=== PATIENT | male | born 1955 | race Caucasian/White ===

== ENCOUNTER 2021-08-02 18:45 | Emergency (ER) | payer SELFPAY ==
--- OUTSIDE RECORDS SUMMARY | 2021-08-02 18:48 | XMS REPORT | Continuity of Care Document ---
:1955 Author Organization [facility] t Address [address] [place] [address] Care Team Providers Name Role Phone Bakari Browning Attending Clinician Unavailable Bakari Browning Admitting Clinician Unavailable Payers Payer Name Policy Type Policy Number Effective Date Expiration Date S ource Problems This patient has no known problems. Allergies, Adverse Reactions, Alerts Allergy Allergy Status Severity Reaction(s) Onset Inactive Treating Comm ents Source Name Type Date Date Clinician No Known DA Active U [facility] Allergie 11-16 Clear s 00:00: Bruce 00 [facility] Medications This patient has no known medications. Immunizations Ordered Immunization Filled Immunization Date Status Commen ts Source Name Name Javier COVID-19 Javier COVID-19 2021-04-16 Completed Vaccine Vaccine 00:00:00 Pfizer COVID-19 Vaccine Pfizer COVID-19 2021-03-19 Completed Vaccine 00:00:00 Javier COVID-19 Javier COVID-19 2020-12-30 Completed Vaccine Vaccine 00:00:00 Pfizer COVID-19 Vaccine Pfizer COVID-19 2020-07-20 Completed Vaccine 00:00:00 Pfizer COVID-19 Vaccine Pfizer COVID-19 2020-06-29 Completed Vaccine 00:00:00 Procedures This patient has no known procedures. Encounters Start End Encounter Admission Attending Care Care Encounter Source Date/Time Date/Time Type Type Clinicians Facility Department ID 2021-04-16 2021-04-16 Outpatient [facility] [id number] [facility] 00:00:00 00:00:00 V 2021-03-19 2021-03-19 Outpatient [facility] [id number] [facility] 00:00:00 00:00:00 V 2020-12-30 2020-12-30 Outpatient [facility] [id number] [facility] 00:00:00 00:00:00 V 2020-07-20 2020-07-20 Outpatient [facility] [id number] [facility] 00:00:00 00:00:00 V 2020-06-29 2020-06-29 Outpatient [facility] [id number] [facility] 00:00:00 00:00:00 V 2019-09-18 2019-09-18 Outpatient [facility] [id number] [facility] 10:00:00 10:00:00 [facility] 2019-09-12 2019-09-12 Outpatient SUMAN [facility] [id number] [facility] 10:41:00 10:41:00 [facility] 2019-09-01 2019-09-01 Outpatient Clifford [facility] [id number] [facility] 09:00:00 09:00:00 [facility] [id number] [facility] Results Test Description Test Time Test Comments Results Result [facility] e Comments - US ABDOMEN 2019-09-12 Name: COMPLETE 12:23:00 INGA DELA CRUZ [facility] : 1955 Age/S: 63 / M [address] [place] [address] Unit #: [id number] Loc: [place] [address] Phys: Ahsan Browning MD Acct: [id number] Dis Date: Status: REG CLI PHONE #: [phone] Exam Date: 09/12/2019 1142 FAX #: [phone] Reason: B18.2,CHRONIC HEPATITIS C WITHOUT HEPATIC COMA EXAMS: CPT CODE: [id number] US ABDOMEN COMPLETE [id number] PROCEDURE: ABDOMINAL ULTRASOUND INDICATION: 63-year-old male with chronic hepatitis C COMPARISON: MR abdomen 02/25/2018 TECHNIQUE: Sonographic evaluation of the abdomen was performed with supplemental color and pulsed Doppler. FINDINGS: LIVER: The liver is normal in size measuring 15.9 cm, contour and morphology with increased heterogeneous parenchymal echogenicity. Hepatopedal flow in the main portal vein. GALLBLADDER: There are no gallstones, sludge, pericholecystic fluid or wall thickening. Negative sonographic Bernabe sign. BILE DUCTS: No biliary dilatation. The common duct measures 4 mm. PANCREAS: The pancreas is obscured by bowel gas. SPLEEN: The spleen is mildly prominent, measuring 13.2 cm in length. Tiny shadowing hyperechoic focus noted in the spleen likely representing a calcified granuloma. KIDNEYS: The right kidney measures 10.7 cm in length. Normal contour and parenchymal echogenicity. There is no hydronephrosis, nephrolithiasis, mass lesion or perinephric collection. The left kidney measures 11.9 cm in length. Normal contour and parenchymal echogenicity. There is no hydronephrosis, nephrolithiasis, mass lesion or perinephric collection. AORTA AND INFERIOR VENA CAVA: Visualized portions appear normal. The aorta is largely obscured by bowel gas. Additional comments: No free intraperitoneal fluid. IMPRESSION: 1. Heterogeneous increased hepatic parenchymal echogenicity suggestive of fibrofatty change. PAGE 1 Signed Report (CONTINUED) Name: INGA DELA CRUZ [facility] : 1955 Age/S: 63 / M [address] [place] [address] Unit #: [id number] Loc: [place] [address] Phys: Ahsan Browning MD Acct: [id number] Dis Date: Status: REG CLI PHONE #: [phone] Exam Date: 09/12/2019 1142 FAX #: [phone] Reason: B18.2,CHRONIC HEPATITIS C WITHOUT HEPATIC COMA EXAMS: CPT CODE: [id number] US ABDOMEN COMPLETE [id number] <Continued> SL: [id number] at 1223 Reported and signed by: Tatiana Almendarez M.D. CC: Ahsan BROWNING Technologist: Simona Fuller Trnscb Date/Time: 09/12/2019 (1223) [id number] Orig Print D/T: S: 09/12/2019 (1226) Probe: PAGE 2 Signed Report SURGICAL SPECIMENS 2017-11-18 09:28:00 --------RUN DATE: 11/18/17 [facility] *LIVE* PAGE 1 RUN TIME: 927 Specimen Inquiry RUN USER: INTERFACE --------PATIENT: INGA DELA CRUZ LOC: [facility] U #: [id number] AGE/SX: 61/M ROOM: RE11/16/17REG DR: Keisha Stanley MD : [birth year] BED: DIS: STATUS: [facility]: -------- SPEC #: [id number] RECD: 11/16/17 STATUS: ANDRY RESoy #: [id number] ALENA: 11/16/[address] [facility] [address]: Keisha Stanley MD ENTERED: 11/17/17 SP TYPE: SURG SPEC OTHR DR: Lyn Mena MD, John A MDORDERED: LEVEL 4 CODES: [id number] - LIVER, NOS COPIES TO: Lyn Mena MD [address] , [address] [place], [place] [id number] Keisha Stanley MD [address] [place], [place] [id number] Ahsan Browning MD [address] [facility] [address] [place], [place] [address] PROCEDURES: GM LEVEL 4 (Incomplete) TISSUES: 1. LIVER, NOS - Liver, right lobe, bx. FINAL DIAGNOSIS Liver, right lobe, bx.: Chronic hepatitis with moderate interface hepatitis (grade 3), moderate steatosis, portal to central bridges with probable nodules suggesting cirrhosis (stage IV) (Deondre's Classification). GROSS AND MICROSCOPIC GROSS EXAMINATION: Received in formalin and labeled right lobe of the liver biopsy are cylindrical segments of brown tissue that measure 1.7 cm in length and 0.1 cm in diameter. Entirely submitted for microscopic examination. MICROSCOPIC EXAMINATION: Sections of the "Liver, right lobe, bx." reveal changes of chronic hepatitis. The portal tracts show increased fibrosis with moderate interface hepatitis (grade 3) and moderate steatosis. Fibrosis is increased with portal to central bridges and with probable CONTINUED ON NEXT PAGE --------RUN DATE: 11/18/17 [facility] *LIVE* PAGE 2 RUN TIME: 927 Specimen Inquiry RUN USER: INTERFACE --------SPEC #: [id number] PATIENT: INGA DELA CRUZ #[id number] (Continued) GROSS AND MICROSCOPIC (Continued) nodules suggesting cirrhosis (stage IV). (Deondre's Classification) the reticulin stain shows the increased fibrosis but does not show collapse fibrosis. The trichrome stain shows the increased fibrosis. The iron stain does not show increased stainable iron. POST-OP DIAGNOSIS Hereditary hemochromatosis, alcoholic fatty liver PRE-OP DIAGNOSIS Hereditary hemochromatosis, alcoholic fatty liver REVIEWED BY: Signed SIGNATURE ON FILE Yoselyn Srinivasan MD 11/18/17 0928 -------- END OF REPORT
[2021-08-02 20:14] LABS: Urine Blood Trace-lysed (Negative); Urine Glucose Negative (Negative); Urine Protein Negative (Negative); Urine pH 5.5 (5.0-7.0)
[2021-08-02 20:19] LABS: Absolute Lymphocytes (CBC) 1.7 K/uL (0.7-4.9); Hematocrit 42.5 % (39.6-49.0); MPV 8.2 fL (7.6-11.3); RBC Red Blood Cell Count 4.62 M/uL (4.33-5.43)
[2021-08-02 20:26] LABS: Protime INR 0.95
[2021-08-02 20:35] LABS: Barbiturates NEGATIVE (NEGATIVE); Benzodiazepines NEGATIVE (NEGATIVE); Cocaine NEGATIVE (NEGATIVE); METHAMPHETAM NEGATIVE (NEGATIVE); Methadone NEGATIVE (NEGATIVE); Opiates NEGATIVE (NEGATIVE); Phencyclidine NEGATIVE (NEGATIVE); THC Cannibis NEGATIVE (NEGATIVE)
[2021-08-02 20:36] LABS: Sodium Level 135 mmol/L (136-145)
[2021-08-02 20:41] LABS: ALT/SGPT 27 U/L (12-78); AST/SGOT 46 U/L (15-37); Albumin 3.9 g/dL (3.4-5.0); BUN Blood Urea Nitrogen 16 mg/dL (7-18); Bicarbonate 23 mmol/L (21-32); Bilirubin Direct 0.5 mg/dL (0-0.2); Glucose Level 98 mg/dL (74-106)
[2021-08-02 20:48] LABS: Alkaline Phosphatase 103 U/L (45-117); Bilirubin Total 1.7 mg/dL (0.2-1.0)
[2021-08-03] MEDS ORDERED: GABAPENTIN 300 MG CAP ONE (07:50)
[2021-08-03] MEDS ORDERED: lisinopriL 20 MG TAB ONE (07:50)
[2021-08-03] MEDS ORDERED: POTASSIUM 25 MEQ EFFERV TAB ONE (07:51)
--- NOTE | 2021-08-03 08:59 | ER ---
Nurse's Notes [facility] Name: Jesse Frank Age: 65 yrs Sex: Male : 1955 Arrival Date: 08/02/2021 Time: 18:48 Bed 17 Private MD: Diagnosis: Depression, ;Alcohol abuse;Alcohol use, unspecified;Alcoholism and drug addiction in family Presentation: 08/02 18:55 Chief complaint: Patient states: "I want to kill myself, I want to shoot myself in the vg1 head, nothing is working; Ivelisse been dealing with depression, nobody wants me, nobody likes me and nobody needs me so I might as well just , just fuck it all" States depression started 20 years ago after divorce. Also states "I havent talked to my son either, I dont know why, I think my ex told him something. So now I dont have my son" Denies HI. Coronavirus screen: Vaccine status: Patient reports receiving the 2nd dose of the covid vaccine. Client denies travel out of the [place] in the last 14 days. Ebola Screen: Patient denies exposure to infectious person. Patient denies travel to an Ebola-affected area in the 21 days before illness onset. Initial Sepsis Screen: Does the patient meet any 2 criteria? No. Patient's initial sepsis screen is negative. Does the patient have a suspected source of infection? No. Patient's initial sepsis screen is negative. Risk Assessment: Do you want to hurt yourself or someone else? Patient reports desire/thoughts of hurting themselves or someone else. Provider notified. Onset of symptoms was August 02, 2021. 18:55 Method Of Arrival: Ambulatory vg1 18:55 Acuity: CANDIS 2 vg1 Triage Assessment: 19:00 General: Appears uncomfortable, Behavior is agitated. Pain: Denies pain. vg1 Historical: - Allergies: 19:00 No Known Allergies; vg1 - Home Meds: 19:00 gabapentin oral [Active]; vg1 - PMHx: 19:00 Neuropathy; Depressive disorder; Hypertensive disorder; vg1 - Immunization history:: Client reports receiving the 2nd dose of the Covid vaccine. - Social history:: Smoking status: Patient denies any tobacco usage or history of. Patient uses alcohol, patient/guardian reports recent binge of alcohol consumption. Screenin:00 Abuse screen: Denies threats or abuse. Nutritional screening: No deficits noted. ag7 Tuberculosis screening: No symptoms or risk factors identified. Fall Risk No fall in past 12 months (0 pts). No secondary diagnosis (0 pts). IV access (20 points). Ambulatory Aid- None/Bed Rest/Nurse Assist (0 pts). Gait- Normal/Bed Rest/Wheelchair (0 pts) Mental Status- Oriented to own ability (0 pts). Total Flanagan Fall Scale indicates No Risk (0-24 pts). Assessment: 19:10 General: Appears in no apparent distress. Behavior is calm, cooperative, appropriate ag7 for age. General: Patient verbalize suicidal ideation with "a plan to take pills and drink alcohol". Pain: Denies pain. Neuro: Level of Consciousness is awake, alert, obeys commands, Oriented to person, place, time, situation, Appropriate for age. Cardiovascular: Heart tones S1 S2 present Capillary refill < 3 seconds in bilateral fingers Clubbing of nail beds is absent Patient's skin is warm and dry. Edema is absent. Respiratory: Airway is patent Trachea midline Respiratory effort is even, unlabored, Respiratory pattern is regular, symmetrical, Breath sounds are coarse bilaterally. GI: Abdomen is round non-distended. : Urine is clear. EENT: No deficits noted. Derm: No deficits noted. Musculoskeletal: No deficits noted. 20:00 Reassessment: No changes from previously documented assessment. Patient and/or family ag7 updated on plan of care and expected duration. Pain level reassessed. Patient is alert, oriented x 3, equal unlabored respirations, skin warm/dry/pink. sitter at the bedside. 21:00 Reassessment: No changes from previously documented assessment. ag7 22:00 Reassessment: Patient and/or family updated on plan of care and expected duration. Pain ag7 level reassessed. Patient is alert, oriented x 3, equal unlabored respirations, skin warm/dry/pink. sitter at the bedside, patient resting in bed with eyes closed. 23:00 Reassessment: No changes from previously documented assessment. Patient and/or family ag7 updated on plan of care and expected duration. Pain level reassessed. Patient is alert, oriented x 3, equal unlabored respirations, skin warm/dry/pink. 04/24 00:00 Reassessment: No changes from previously documented assessment. Patient and/or family ag7 updated on plan of care and expected duration. Pain level reassessed. Patient is alert, oriented x 3, equal unlabored respirations, skin warm/dry/pink. sitter at bedside, patient continue with suicide ideation Patient denies pain at this time. 01:00 Reassessment: No changes from previously documented assessment. ag7 02:00 Reassessment: No changes from previously documented assessment. Patient and/or family ag7 updated on plan of care and expected duration. Pain level reassessed. Patient is alert, oriented x 3, equal unlabored respirations, skin warm/dry/pink. Patient is restless, tossing and turning in bed, patient provided with blanket. Sitter continue to monitor at the bedside Patient denies pain at this time. 03:00 Reassessment: No changes from previously documented assessment. ag7 04:00 Reassessment: Patient and/or family updated on plan of care and expected duration. Pain ag7 level reassessed. Patient is alert, oriented x 3, equal unlabored respirations, skin warm/dry/pink. sitter at the bedside. 04:48 Reassessment: Patient complete intake question via phone with [facility]. ag7 06:00 Reassessment: Patient and/or family updated on plan of care and expected duration. Pain ag7 level reassessed. Patient is alert, oriented x 3, equal unlabored respirations, skin warm/dry/pink. sitter at the bedside, patient continue to verbalize suicidal ideation. Patient denies pain at this time. 07:00 Reassessment: No changes from previously documented assessment. Patient and/or family ll1 updated on plan of care and expected duration. Pain level reassessed. Patient is alert, oriented x 3, equal unlabored respirations, skin warm/dry/pink. 07:15 General: Appears in no apparent distress. Behavior is cooperative, appropriate for age. ll1 General: Feeling better at this time. States he wants to use his cell phone to call family to let them know he is here. Given ice water. Alert and oriented, no distress at this time. Sitter at bedside. Pain: Denies pain. Neuro: No deficits noted. 07:53 General: No longer suicidal. Feels alone, helpless. Self medicates with alcohol, but ll1 tries to go to AA meetings (currently has a sponsor) intermittently for the past 5 months. Denies illegal drug use. . 08:50 Reassessment: No changes from previously documented assessment. Patient and/or family ll1 updated on plan of care and expected duration. Pain level reassessed. Patient is alert, oriented x 3, equal unlabored respirations, skin warm/dry/pink. 09:26 Reassessment: No changes from previously documented assessment. Patient and/or family ll1 updated on plan of care and expected duration. Pain level reassessed. Patient is alert, oriented x 3, equal unlabored respirations, skin warm/dry/pink. Psych: 08/02 19:30 [place] Suicide Severity Screening: In the past month, have you wished you were ag7 or wished you could go to sleep and not wake up? Patient responds "yes." "In the past month, have you actually had any thoughts of killing yourself?" Patient responds "yes." "In your lifetime, have you ever done anything, started to do anything, or prepared to do anything to end your life?" Patient responds "yes.". Subjective: Having thoughts of suicide. Plan for suicide is take pills and drink alcohol. Objective: Patient is cooperative, belligerent, Speech is rambling, Affect is appropriate. Interventions: Removed personal items and placed in bag. Patient placed in hospital gown. Searched person for dangerous items. Urine collected and sent for urine drug test. Belonging list filled out. Patient reassessed during use of restraints. Patient is physically safe. Patient's cardiac status is stable. Patient's respirations are even and unlabored. Patient has good circulation in all extremities as indicated by capillary refill < 3 seconds. Patient's ROM assessed and is intact. Patient nutrition and hydration needs will continue to be monitored and addressed. Patient hygiene and elimination needs met. Patient assessed for signs of distress. Patient remains reasonably comfortable at this time. Assisted patient in de-escalation of behavior by removing stimuli causing behavior where possible. Restraints continue to be necessary for patient and staff safety. Safety Checks: Personal items have been removed. Door is open. No visitors are present at this time. sitter at the bedside. Patient uses. Consultation: Psych loan interviewer notified of patients arrival. Commitment: Patient will be a voluntary commitment. Vital Signs: 18:55 BP 145 / 82; Pulse 96; Resp 18; Temp 99.5(TE); Pulse Ox 98% on R/A; Weight 88.45 kg; vg1 Height 5 ft. 10 in. (177.80 cm); Pain 0/10; 08/03 07:30 BP 166 / 89; Pulse 83; Resp 17; Temp 97.8; Pulse Ox 96% on R/A; Pain 0/10; ll1 08/02 18:55 Body Mass Index 27.98 (88.45 kg, 177.80 cm) vg1 ED Course: 08/02 18:48 Patient arrived in ED. ds1 19:00 Triage completed. vg1 19:00 Arm band placed on. vg1 19:05 Chi Amado MD is Attending Physician. kdr 19:11 So Browning, SALTY is Primary Nurse. ag7 21:06 No provider procedures requiring assistance completed. ag7 21:08 Patient has correct armband on for positive identification. Placed in gown. Bed in low ag7 position. Call light in reach. sitter at the bedside. 08/03 03:08 ETOH Level: Draw at midnight Sent. ag7 03:50 contacted [facility] Crisis Line spoke to Mundo to have a screener evaluate the patient.mw2 04:25 patient on the phone with Jeri from [facility]. mw2 07:00 Inserted saline lock: 20 gauge in right antecubital area, using aseptic technique. ll1 Blood collected. done by custom tailor MANAGER ORANGE. 09:24 IV discontinued, intact, bleeding controlled, No redness/swelling at site. Pressure ll1 dressing applied. Administered Medications: 07:52 Drug: Potassium Effervescent Tablet 50 mEq Route: PO; ll1 09:25 Follow up: Response: No adverse reaction ll1 07:53 Drug: Gabapentin 300 mg Route: PO; ll1 09:25 Follow up: Response: No adverse reaction ll1 07:53 Drug: Lisinopril 20 mg Route: PO; ll1 09:25 Follow up: Response: No adverse reaction ll1 Outcome: 08:59 Discharge ordered by . kdr 09:24 Discharged to home ambulatory. ll1 09:24 Condition: stable 09:24 Discharge instructions given to patient, Instructed on discharge instructions, follow up and referral plans. Demonstrated understanding of instructions, follow-up care. 09:26 Patient left the ED. ll1 Signatures: Chi Amado MD MD kdr Sanford, Demi ds1 Layton Mendes mw2 Megan Arzate RN RN vg1 Yumiko Hanna, RN RN ll1 So Browning, SALTY RN ag7 Corrections: (The following items were deleted from the chart) 06:16 06:16 Condition: stable ag7 ag7 06:17 06:16 Patient did not have IV access during this emergency room visit. ag7 ag7 06:22 06:00 Reassessment: Patient and/or family updated on plan of care and expected ag7 duration. Pain level reassessed. Patient is alert, oriented x 3, equal unlabored respirations, skin warm/dry/pink. sitter at the bedside, patient continue to verbalize suicidal ideation. ag7 07:53 07:15 General: Feeling better at this time. States he wants to use his cell phone to ll1 call family to let them know he is here. Given ice water. Alert and oriented, no distress at this time. Sitter at bedside. ll1
--- NOTE | 2021-08-03 09:00 | EDPHYS ---
Physician Documentation [facility] Name: Jesse Frank Age: 65 yrs Sex: Male : 1955 Arrival Date: 08/02/2021 Time: 18:48 Bed 17 Private MD: ED Physician Chi Amado HPI: 08/02 19:32 This 65 yrs old Male presents to ER via Ambulatory with complaints of Suicidal Ideation.kdr 19:32 The patient presents to the emergency department with depression, Long standing kdr depression, suicide ideation. Onset: The symptoms/episode began/occurred at an unknown time. Past psychiatric history: Prior diagnosis: depression, Psychiatric medications include: none. Associated signs and symptoms: The patient has no apparent associated signs or symptoms. Severity of symptoms: At their worst the symptoms were mild in the emergency department the symptoms are unchanged. The patient has experienced similar episodes in the past, chronically. Patient has been to several psychiatric facilities and interacted with the police recently in search of help for his depression. Today he was at [facility] and also interacted with the police (not in a belligerent or confrontational manner). They had suggested some possible resources locally for him to contact. He last saw a psychiatrist about 2 years ago. He did not have any further medications that he is maintained in that regard since. No other medical concerns at this time. He does not have a specific plan. He does not have a weapon (gun) immediately available to him. Currently lives on a boat at the [facility]. He states he does not have any friends at this time. He has been for over 20 years. He has little contact with his son (who is adopted) who lives in [place]. States that he may just blow his brains out however that seems to be a youth and is in for multiple possible methods of terminating his life.. Historical: - Allergies: 19:00 No Known Allergies; vg1 - Home Meds: 19:00 gabapentin oral [Active]; vg1 - PMHx: 19:00 Neuropathy; Depressive disorder; Hypertensive disorder; vg1 - Immunization history:: Client reports receiving the 2nd dose of the Covid vaccine. - Social history:: Smoking status: Patient denies any tobacco usage or history of. Patient uses alcohol, patient/guardian reports recent binge of alcohol consumption. ROS: 19:32 Constitutional: Negative for fever, chills, and weight loss, Eyes: Negative for injury, kdr pain, redness, and discharge, ENT: Negative for injury, pain, and discharge, Neck: Negative for injury, pain, and swelling, Cardiovascular: Negative for chest pain, palpitations, and edema, Respiratory: Negative for shortness of breath, cough, wheezing, and pleuritic chest pain, Abdomen/GI: Negative for abdominal pain, nausea, vomiting, diarrhea, and constipation, Back: Negative for injury and pain, : Negative for injury, bleeding, discharge, and swelling, MS/Extremity: Negative for injury and deformity, Skin: Negative for injury, rash, and discoloration, Neuro: Negative for headache, weakness, numbness, tingling, and seizure activity. Allergy/Immunology: Negative for hives, rash, and allergies, Endocrine: Negative for neck swelling, polydipsia, polyuria, polyphagia, and marked weight changes, Hematologic/Lymphatic: Negative for swollen nodes, abnormal bleeding, and unusual bruising. 19:32 Psych: Positive for depression, alcohol dependence, suicidal ideation. Exam: 08/03 19:43 Constitutional: This is a well developed, well nourished patient who is awake, alert, kdr and in no acute distress. Head/Face: Normocephalic, atraumatic. Eyes: Pupils equal round and reactive to light, extra-ocular motions intact. Lids and lashes normal. Conjunctiva and sclera are non-icteric and not injected. Cornea within normal limits. Periorbital areas with no swelling, redness, or edema. Neck: Trachea midline, no thyromegaly or masses palpated, and no cervical lymphadenopathy. Supple, full range of motion without nuchal rigidity, or vertebral point tenderness. No Meningismus. Chest/axilla: Normal chest wall appearance and motion. Nontender with no deformity. No lesions are appreciated. Cardiovascular: Regular rate and rhythm with a normal S1 and S2. No gallops, murmurs, or rubs. Normal PMI, no JVD. No pulse deficits. Respiratory: Lungs have equal breath sounds bilaterally, clear to auscultation and percussion. No rales, rhonchi or wheezes noted. No increased work of breathing, no retractions or nasal flaring. Abdomen/GI: Soft, non-tender, with normal bowel sounds. No distension or tympany. No guarding or rebound. No evidence of tenderness throughout. Back: No spinal tenderness. No costovertebral tenderness. Full range of motion. Skin: Warm, dry with normal turgor. Normal color with no rashes, no lesions, and no evidence of cellulitis. MS/ Extremity: Pulses equal, no cyanosis. Neurovascular intact. Full, normal range of motion. Neuro: Awake and alert, GCS 15, oriented to person, place, time, and situation. Cranial nerves II-XII grossly intact. Motor strength 5/5 in all extremities. Sensory grossly intact. Cerebellar exam normal. Normal gait. Psych: Behavior/mood is pleasant, cooperative, anxious, suicidal, depressed, Affect is animated, Oriented to person, place, time, Patient having thoughts of suicide. Denies suicidal plan. Patient states he does not have access to a gun. The other hand he states he is going to blow his brains out. When I discussed with him the fact that it would be difficult to shoot himself without having a Bhandari, he indicated that he would fall on a knife for attached IV objects to himself or jump off his boat. Vital Signs: 08/02 18:55 BP 145 / 82; Pulse 96; Resp 18; Temp 99.5(TE); Pulse Ox 98% on R/A; Weight 88.45 kg; vg1 Height 5 ft. 10 in. (177.80 cm); Pain 0/10; 08/03 07:30 BP 166 / 89; Pulse 83; Resp 17; Temp 97.8; Pulse Ox 96% on R/A; Pain 0/10; ll1 08/02 18:55 Body Mass Index 27.98 (88.45 kg, 177.80 cm) vg1 MDM: 05:40 Data reviewed: vital signs, nurses notes. ED course: Discussed the patient's case with larry Gutiérrez. They after their initial evaluation felt he warranted inpatient evaluation and treatment at this time. It is my opinion that that that is the best for him at this time. Patient expressed interest in leaving at this time returning about a week to get care. He indicated that he had a restorationist event and he needed to attend to this next week but would return after that. Will discuss further with him given [facility] [employer] input at this time. 08:59 Patient medically screened. kdr 19:43 ED course: Had an extensive conversation with his AA mentor (Ion) about his current kdr condition. I had appear to be largely aware of the patient's drinking issues but not necessarily his entire psychiatric profile. After lengthy discussion which involved a three-way conversation between the patient, Ion and myself, it was concluded that the patient would be discharged at this time. For the next few days and weeks, the patient would #1, seek to get ensured, #2, he would seek out counseling through [employer] or other resources., #3, the patient would report in frequently and communicate frequently with his AA mentor group. [place] group would be apprised by Ion of the patient's condition and circumstances and need for vigilant observation over the next few days and weeks. The patient was very agreeable and happy for this outcome. He was discharged in good condition without evidence of any current ongoing psychiatric issues especially suicidal ideation.. 08/02 19:07 Order name: Acetaminophen; Complete Time: 21:10 [facility] 08/02 19:07 Order name: Basic Metabolic Panel; Complete Time: 21:10 [facility] 08/02 19:07 Order name: CBC with Diff; Complete Time: 21:10 [facility] 08/02 19:07 Order name: ETOH Level; Complete Time: 21:10 [facility] 08/02 19:07 Order name: Hepatic Function; Complete Time: 21:10 [facility] 08/02 19:07 Order name: PT-INR; Complete Time: 21:10 [facility] 08/02 19:07 Order name: Ptt, Activated; Complete Time: 21:10 [facility] 08/02 19:07 Order name: Salicylate; Complete Time: 21:10 [facility] 08/02 19:07 Order name: Urine Drug Screen; Complete Time: 21:10 [facility] 08/02 20:14 Order name: Urine Dipstick-Ancillary; Complete Time: 21:10 [facility]MS 08/02 20:22 Order name: SARS-COV-2 RT PCR; Complete Time: 21:10 [facility] 08/02 22:15 Order name: ETOH Level: Draw at midnight; Complete Time: 07:08 [facility] 08/02 19:07 Order name: IV Saline Lock; Complete Time: 20:14 [facility] 08/02 19:07 Order name: Labs collected and sent; Complete Time: 20:14 kdr 08/02 19:07 Order name: Suicide Screening ([place]); Complete Time: 20:14 kdr 08/02 19:07 Order name: Urine Dipstick-Ancillary (obtain specimen); Complete Time: 20:14 kdr 08/03 07:12 Order name: Diet Finger Food; Complete Time: 07:13 ph 08/03 07:13 Order name: Diet Regular: Psych patient; Complete Time: 07:14 ss Administered Medications: 07:52 Drug: Potassium Effervescent Tablet 50 mEq Route: PO; ll1 09:25 Follow up: Response: No adverse reaction ll1 07:53 Drug: Gabapentin 300 mg Route: PO; ll1 09:25 Follow up: Response: No adverse reaction ll1 07:53 Drug: Lisinopril 20 mg Route: PO; ll1 09:25 Follow up: Response: No adverse reaction ll1 Disposition Summary: 08/03/21 08:59 Discharge Ordered Location: Home kdr Problem: an acute exacerbation kdr Symptoms: have improved kdr Condition: Stable kdr Diagnosis - Depression, kdr - Alcohol abuse kdr - Alcohol use, unspecified kdr - Alcoholism and drug addiction in family kdr Followup: kdr - With: Private Physician - When: 2 - 3 days - Reason: If symptoms return, Further diagnostic work-up, Recheck today's complaints, Continuance of care, Re-evaluation by your physician Discharge Instructions: - Discharge Summary Sheet kdr - Supporting Someone With an Addiction kdr - Suicidal Feelings: How to Help Yourself kdr - Helping Someone Who is Suicidal kdr - Alcohol Intoxication, [id number] kdr - Stress, Adult kdr - Alcohol Withdrawal Syndrome, [id number] kdr - Supporting Someone With Depression kdr - Managing Depression, Adult kdr Forms: - Medication Reconciliation Form kdr - Thank You Letter kdr Signatures: Dispatcher [employer] EDMS Chi Amado MD MD kdr Alzahri, Mohammad, MD MD ma2 Garcia, Victoria RN RN vg1 Yumiko Hanna RN RN ll1 Corrections: (The following items were deleted from the chart) 08/02 20:22 19:39 COVID 19 CPL+ ordered. EDMS EDMS
[2021-08-03 09:32] VITALS: BP 166/89; TEMP 97.8; O2SAT 96
== END 2021-08-03 09:26 | disposition home or self-care (01) ==
LOC: ER 18:45
DX: F32.A Depression, unspecified (principal); F10.10 Alcohol abuse, uncomplicated; Z81.1 Family history of alcohol abuse and dependence; Z81.3 Family history of other psychoactive substance abuse and dependence; Z20.822 Contact with and (suspected) exposure to COVID-19; I10 Essential (primary) hypertension
CPT/HCPCS: 36415; 80048; 80076; 80307; 80320; 80329; 81003; 85025; 85610; 85730; 99285; U0003